=== PATIENT | male | born 1950 | race Caucasian/White ===

== ENCOUNTER 2017-12-14 12:29 | Inpatient (IN) ==
[2017-12-14] MEDS ORDERED: MAGNESIUM SULF RIDER 2 GM in PREMIX 1 EACH IV PRN (13:20)
[2017-12-14] MEDS ORDERED: MAGNESIUM HYDROXIDE SUSP 30 ML UDCUP PO PRN (13:20)
[2017-12-14] MEDS ORDERED: BISACODYL 5 MG TABLET PO PRN (13:20)
[2017-12-14] MEDS ORDERED: MORPHINE 4 MG/1 ML VIAL IV PRN (13:20)
[2017-12-14] MEDS ORDERED: POTASSIUM CHLORIDE 20 MEQ TABLET PO PRN (13:20)
[2017-12-14] MEDS ORDERED: ONDANSETRON 4 MG/2 ML VIAL IV PRN (13:20)
[2017-12-14] MEDS ORDERED: ZALEPLON 5 MG CAPSULE PO PRN (13:20)
[2017-12-14] MEDS ORDERED: ACETAMINOPHEN 325 MG TABLET PO PRN (13:20)
[2017-12-14] MEDS ORDERED: ENOXAPARIN 80 MG/0.8 ML SYRINGE SUBCUT STA (15:17)
[2017-12-14] MEDS ORDERED: diphenhydrAMINE CAP 25 MG CAPSULE PO PRN (15:22)
[2017-12-14] MEDS ORDERED: ACETAMINOPHEN 500 MG TABLET PO PRN (15:23)
[2017-12-14] MEDS ORDERED: SIMETHICONE CHEW 80 MG TABLET PO PRN (15:23)
[2017-12-14] MEDS: SODIUM CHLORIDE 0.45% 1,000 ML IV SCH (16:00)
[2017-12-14] MEDS ORDERED: SIMETHICONE CHEW 125 MG TABLET PO PRN (17:25)
[2017-12-14] MEDS ORDERED: predniSONE 5 MG TABLET ONE (20:33)
[2017-12-14] MEDS ORDERED: ROSUVASTATIN 20 MG TABLET PO SCH (21:00)
[2017-12-14] MEDS ORDERED: predniSONE 1 MG TABLET PO SCH (21:00)
[2017-12-14] MEDS ORDERED: PREGABALIN 75 MG CAPSULE PO SCH (21:00)
[2017-12-14] MEDS: predniSONE 1 MG TABLET PO SCH (21:26)
[2017-12-15 05:42] LABS: Basophils % 0.3 % (0.0-0.8); Eosinophils # 0.2 10*3/uL (0.0-0.87); Eosinophils % 2.2 % (0.00-10.9); Hematocrit 41.9 VOL% (42.0-52.0); Hemoglobin 14.7 GM/DL (14.0-18.0); Immature Granulocytes % 0.3 %; Immature Granulocytes Absolute 0.02 #; Lymphocytes # 1.4 10*3/uL (1.4-4.0); Lymphocytes % 20.6 % (21.2-54.2); Mean Corpuscular HGB Conc 35.1 GM/DL (32-36); Mean Corpuscular Hemoglobin 30 PG (27-34); Mean Platelet Volume 11.5 FL (9.6-12.0); Monocytes # 0.6 10*3/uL (0.11-0.8); Monocytes % 8.4 % (1.7-12.7); Neutrophils # 4.7 10*3/uL (1.4-7.4); Neutrophils % 68.2 % (38.7-73.9); Platelet Count 207 T/CUMM (130-400); Red Blood Count 4.93 MC/CUMM (3.8-5.5); Red Cell Distribution Width 13.3 % (9.3-17.3); White Blood Count 6.8 T/CUMM (4-12)
[2017-12-15 05:44] LABS: PT Patient Result 10.4 SECS
[2017-12-15 06:07] LABS: Albumin 3.6 G/DL (3.4-5.0); Bilirubin,Total 0.9 MG/DL (0.2-1.0); Calcium 8.9 MG/DL (8.5-10.1); Osmolality,Calculated 276.5 MOS/KG (273-304); Risk Ratio 2.22; Total Protein 7.3 G/DL (6.4-8.3); VLDL CHOLESTEROL 26.2 MG/DL
[2017-12-15] MEDS: SODIUM CHLORIDE 0.45% 1,000 ML IV SCH (06:41)
[2017-12-15 07:22] VITALS: BP 133/80
[2017-12-15] MEDS ORDERED: ASPIRIN EC 81 MG TABLET PO SCH (09:00)
[2017-12-15] MEDS ORDERED: PANTOPRAZOLE 40 MG TABLET PO SCH (09:00)
[2017-12-15] MEDS ORDERED: CHOLECALCIFEROL 1,000 UNIT TABLET PO SCH (09:00)
[2017-12-15] MEDS ORDERED: MULTIVITAMIN (CENTRUM) TABLET PO SCH (09:00)
[2017-12-15] MEDS ORDERED: ASPIRIN CHEW 81 MG TABLET PO SCH (09:00)
[2017-12-15] MEDS ORDERED: OLMESARTAN 20 MG TABLET PO SCH (09:00)
[2017-12-15] MEDS: predniSONE 1 MG TABLET PO SCH (10:17)
== END 2017-12-15 11:10 | disposition home or self-care (01) | DRG 303 ==
LOC: EDUNIT# → N.ED 12:29 → N.EDINP 13:20 → N.TELES 16:42
PROVIDERS: ADMIT Internal Medicine Cardiovascular Disease; ATTEND Internal Medicine Cardiovascular Disease